=== PATIENT | female | born 1950 | race Caucasian/White ===

== ENCOUNTER → 2018-02-26 | Day surgery (SDC) | payer MEDICARE, OTHER ==
[~2018-02-26] MED LIST: CELEXA20 MG PO; CRESTOR10 MG PO; FENTANYL CITRATE/PF 100MCG/2 ML INJ ONE; MIDAZOLAM HCL 2 MG/2 ML VIAL ONE; MYRBETRIQ25 MG PO; OR PHACO EYE KIT ONE; OTEZLA PO; PREOP PHACO EYE KIT ONE
[2018-02-26 16:04] VITALS: BP 116/76
== END | disposition home or self-care (01) ==
LOC: OR 12:24
PROVIDERS: ATTEND Ophthalmology
DX: H25.12 Age-related nuclear cataract, left eye (principal); E78.00 Pure hypercholesterolemia, unspecified; L40.9 Psoriasis, unspecified; J44.9 Chronic obstructive pulmonary disease, unspecified; F41.9 Anxiety disorder, unspecified; Z88.6 Allergy status to analgesic agent; Z86.73 Personal history of transient ischemic attack (TIA), and cerebral infarction without residual deficits; Z87.891 Personal history of nicotine dependence
CPT/HCPCS: 66984; J2250; V2632

== ENCOUNTER → 2018-03-12 | Day surgery (SDC) | payer OTHER, MEDICARE ==
[2018-03-12 15:25] VITALS: BP 128/75
== END | disposition home or self-care (01) ==
LOC: OR 12:32
PROVIDERS: ATTEND Ophthalmology
DX: H25.11 Age-related nuclear cataract, right eye (principal); Z88.5 Allergy status to narcotic agent; Z88.8 Allergy status to other drugs, medicaments and biological substances; Z86.73 Personal history of transient ischemic attack (TIA), and cerebral infarction without residual deficits; I70.213 Atherosclerosis of native arteries of extremities with intermittent claudication, bilateral legs; E78.5 Hyperlipidemia, unspecified; F41.9 Anxiety disorder, unspecified
CPT/HCPCS: 66984; J2250; V2632